=== PATIENT | male | born 1980 | race Caucasian/White ===

== ENCOUNTER 2023-06-16 21:17 | Inpatient (IN) | payer OTHER ==
[~2023-06-16] VITALS: Ht 167.6 cm; Wt 75.3 kg
[2023-06-16 21:25] VITALS: BP_SYST 120; PULSE 139; RESP 43; TEMP 97.4; O2SAT 100
[2023-06-16 21:51] LABS: BASOPHILS % (AUTO) 0.5 % (0.0-2.0); EOSINOPHILS % (AUTO) 0.7 % (0.0-4.0); HEMATOCRIT 27.5 % (36-54); HEMOGLOBIN 9.1 g/dL (14.0-18.0); LYMPHOCYTES # (AUTO) 1.2 K/uL (1.0-5.5); LYMPHOCYTES % (AUTO) 18.7 % (20.5-51.5); MEAN CORPUSCULAR HEMOGLOBIN 30 pg (27-31); MEAN CORPUSCULAR HGB CONC 33 % (32-36); MEAN CORPUSCULAR VOLUME 90 fL (79.0-98.0); MONOCYTES # (AUTO) 0.6 K/uL (0.0-1.0); MONOCYTES % (AUTO) 8.7 % (1.7-9.3); NEUTROPHILS # (AUTO) 4.7 K/uL (1.8-7.7); NEUTROPHILS % (AUTO) 71.4 % (40.0-70.0); PLATELET COUNT (AUTO) 315 K/uL (130-430); RED BLOOD CELL COUNT(AUTO) 3.05 MIL/uL (4.2-6.2); RED CELL DISTRIBUTION WIDTH 19.2 % (9.0-15.0); WHITE BLOOD COUNT (AUTO) 6.6 K/uL (4.8-10.8)
[2023-06-16 22:11] LABS: INR 1.5 (0.80-1.20); PROTHROMBIN TIME 14.8 SECS (9.5-12.5)
[2023-06-16] MEDS: FUROSEMIDE 40 MG/4 ML VIAL IVP ONE (22:28)
[2023-06-16 22:42] LABS: ALANINE AMINOTRANSFERASE 18 U/L (12-78); ALBUMIN 2.7 g/dL (3.4-4.8); ANION GAP 13 (5-15); ASPARTATE AMINOTRANSFERASE 24 U/L (10-37); CALCIUM 8.1 mg/dL (8.4-11.0); CARBON DIOXIDE 22 mmol/L (23-29); CHLORIDE 103 mmol/L (98-107); CREATININE 1.47 mg/dL (0.55-1.30); GFR AFRICAN AMERICAN 68 mL/min (>90); GLUCOSE 102 mg/dL (74-106); POTASSIUM 3.2 mmol/L (3.5-5.1); SODIUM SERUM 138 mmol/L (136-145); TOTAL BILIRUBIN 0.8 mg/dL (0.0-1.0); UREA NITROGEN, BLOOD 24 mg/dL (8-21)
[2023-06-16 22:50] LABS: GFR NON AFRICAN-AMERICAN 56 mL/min (>90)
[2023-06-16] MEDS ORDERED: APIX5TAB PO (23:11)
[2023-06-16] MEDS ORDERED: HYDR-500 PO (23:11)
[2023-06-16] MEDS ORDERED: BICT1TAB PO (23:11)
[2023-06-16] MEDS ORDERED: ONDA4TAB55 PO (23:11)
[2023-06-16] MEDS ORDERED: PHEDM120 PO (23:11)
[2023-06-16] MEDS ORDERED: FURO40TA5 PO (23:11)
[2023-06-16 23:12] LABS: BILIRUBIN,DIRECT 0.4 mg/dL (0.0-0.3)
[2023-06-16] MEDS ORDERED: ALLO100T PO (23:12)
[2023-06-17] VITALS (8 sets, daily range): BP systolic 104–137; PULSE 88–130; RESP 16–27; TEMP 96.9–98.5; O2SAT 94–100
[2023-06-17 00:13] LABS: COVID19 ANTIGEN SOFIA FIA NEGATIVE (NEGATIVE)
[2023-06-17 00:14] LABS: INFLUENZA TYPE A Negative (NEGATIVE); INFLUENZA TYPE B NEGATIVE (NEGATIVE)
[2023-06-17] MEDS: ZOLPIDEM TARTRATE 5 MG TABLET PO PRN (01:36)
[2023-06-17] MEDS: FUROSEMIDE 40 MG/4 ML VIAL IVP SCH (06:00)
[2023-06-17] MEDS: PIPERACILLIN/TAZOBACTAM 3.375 GM/VIAL (ZOSYN) IV ONE (06:08)
[2023-06-17] MEDS: PIPERACILLIN/TAZO 3.375 GM in NS 50 ML IV SCH (06:21)
[2023-06-17] MEDS: FLUCONAZOLE 100 MG TABLET (DIFLUCAN) PO SCH (10:00)
[2023-06-17] MEDS: ALBUTEROL SULFATE 0.083% 2.5 MG/3 ML VIAL.NEB INH SCH (11:30)
[2023-06-17] MEDS: POTASSIUM CHLORIDE 20 MEQ TABLET.ER PO ONE (13:08)
[2023-06-17] MEDS: AZITHROMYCIN 500 MG in NS 250 ML IV ONE (13:10)
[2023-06-17] MEDS: ALPRAZolam 0.25 MG TABLET PO PRN (16:05)
[2023-06-18] VITALS (8 sets, daily range): BP systolic 94–129; PULSE 89–120; RESP 16–23; TEMP 97.1–98.6; O2SAT 96–100
[2023-06-18] MEDS: ALLOPURINOL 100 MG TABLET (ZYLOPRIM) PO SCH (08:38)
[2023-06-18] MEDS: Biktarvy 50-200-25 mg Tablet PO SCH (08:38)
[2023-06-18 08:58] LABS: BILIRUBIN,URINE NEGATIVE (NEGATIVE); BLOOD, URINE NEGATIVE (NEGATIVE); CLARITY/URINE CLEAR (CLEAR); COLOR,URINE YELLOW (YELLOW); GLUCOSE,URINE NEGATIVE (NEGATIVE); KETONES,URINE NEGATIVE (NEGATIVE); LEUKOCYTE ESTERASE ,URINE NEGATIVE (NEGATIVE); NITRITE, URINE NEGATIVE (NEGATIVE); PROTEIN URINE NEGATIVE (NEGATIVE); UROBILINOGEN,URINE 0.2 (0.2-1.0)
[2023-06-18] MEDS: AZITHROMYCIN 250 MG in NS 250 ML IV SCH (09:23)
[2023-06-18 10:17] LABS: BASOPHILS # (AUTO) 0.1 K/uL (0.0-0.2); BASOPHILS % (AUTO) 1.1 % (0.0-2.0); EOSINOPHILS # (AUTO) 0.1 K/uL (0.0-0.4); EOSINOPHILS % (AUTO) 0.9 % (0.0-4.0); HEMATOCRIT 29.4 % (36-54); HEMOGLOBIN 9.6 g/dL (14.0-18.0); LYMPHOCYTES # (AUTO) 0.7 K/uL (1.0-5.5); MEAN CORPUSCULAR HEMOGLOBIN 30 pg (27-31); MEAN CORPUSCULAR HGB CONC 33 % (32-36); MEAN CORPUSCULAR VOLUME 91 fL (79.0-98.0); MONOCYTES # (AUTO) 0.6 K/uL (0.0-1.0); MONOCYTES % (AUTO) 9.8 % (1.7-9.3); NEUTROPHILS # (AUTO) 4.8 K/uL (1.8-7.7); NEUTROPHILS % (AUTO) 77.2 % (40.0-70.0); PLATELET COUNT (AUTO) 337 K/uL (130-430); RED BLOOD CELL COUNT(AUTO) 3.23 MIL/uL (4.2-6.2); RED CELL DISTRIBUTION WIDTH 19.8 % (9.0-15.0); WHITE BLOOD COUNT (AUTO) 6.2 K/uL (4.8-10.8)
[2023-06-18 10:21] LABS: CALCIUM 8.1 mg/dL (8.4-11.0); CREATININE 1.27 mg/dL (0.55-1.30); POTASSIUM 3.3 mmol/L (3.5-5.1)
[2023-06-18 10:26] LABS: ALBUMIN 2.6 g/dL (3.4-4.8); TOTAL BILIRUBIN 1.2 mg/dL (0.0-1.0); TOTAL PROTEIN, SERUM 7.6 g/dL (6.4-8.3)
[2023-06-18 11:14] LABS: ABG O2 SAT% ESTIMATE 98.5 % (94.0-100.0)
[2023-06-18 11:19] LABS: BLOOD GAS BASE EXCESS -7.4 mmol/L (-3.0-3.0); BLOOD GAS HCO3 11.8 mmol/L (21.0-27.0); BLOOD GAS PCO2 14.5 mmHg (32.0-45.0); BLOOD GAS PH 7.527 (7.350-7.450); BLOOD GAS PO2 106.7 mmHg (75.0-100.0)
[2023-06-18 11:20] LABS: ALLEN'S TEST POSITIVE (P)
[2023-06-18] MEDS: APIXABAN 2.5 MG TABLET PO ONE (11:37)
[2023-06-18] MEDS: CEFEPIME 2 GM in D5W 100 ML IV ONE (11:40)
[2023-06-18] MEDS: SACUBITRIL/VALSARTAN 24 MG-26 MG 1 TABLET PO ONE (14:39)
[2023-06-18 20:04] LABS: URINE SODIUM, RANDOM 54 mmol/L (40-220)
[2023-06-18] MEDS: SACUBITRIL/VALSARTAN 24 MG-26 MG 1 TABLET PO SCH (20:52)
[2023-06-18] MEDS: APIXABAN 2.5 MG TABLET PO SCH (20:52)
[2023-06-19] VITALS (11 sets, daily range): BP systolic 77–106; PULSE 67–107; RESP 16–20; TEMP 96.2–98.9; O2SAT 95–99
[2023-06-19 07:35] LABS: BASOPHILS % (AUTO) 0.4 % (0.0-2.0); EOSINOPHILS # (AUTO) 0.1 K/uL (0.0-0.4); EOSINOPHILS % (AUTO) 1.1 % (0.0-4.0); HEMOGLOBIN 9.5 g/dL (14.0-18.0); LYMPHOCYTES # (AUTO) 0.5 K/uL (1.0-5.5); LYMPHOCYTES % (AUTO) 7.6 % (20.5-51.5); MEAN CORPUSCULAR HEMOGLOBIN 29 pg (27-31); MEAN CORPUSCULAR HGB CONC 32 % (32-36); MEAN CORPUSCULAR VOLUME 92 fL (79.0-98.0); MONOCYTES # (AUTO) 0.5 K/uL (0.0-1.0); MONOCYTES % (AUTO) 7.1 % (1.7-9.3); NEUTROPHILS # (AUTO) 5.8 K/uL (1.8-7.7); NEUTROPHILS % (AUTO) 83.8 % (40.0-70.0); PLATELET COUNT (AUTO) 299 K/uL (130-430); RED BLOOD CELL COUNT(AUTO) 3.27 MIL/uL (4.2-6.2); RED CELL DISTRIBUTION WIDTH 19.7 % (9.0-15.0)
[2023-06-19 07:58] LABS: ALBUMIN 2.1 g/dL (3.4-4.8); CALCIUM 7.4 mg/dL (8.4-11.0); CREATININE 1.04 mg/dL (0.55-1.30); TOTAL BILIRUBIN 0.7 mg/dL (0.0-1.0); TOTAL PROTEIN, SERUM 6.2 g/dL (6.4-8.3)
[2023-06-19 08:00] LABS: POTASSIUM 2.7 mmol/L (3.5-5.1)
[2023-06-19] MEDS: CEFEPIME 2 GM in D5W 100 ML IV SCH (08:37)
[2023-06-19] MEDS: POTASSIUM CHLORIDE 20 MEQ TABLET.ER PO ONE ×2 (10:23→15:19)
[2023-06-19] MEDS: ALBUMIN HUMAN 25% 50 ML IV ONE (10:31)
[2023-06-19] MEDS: KCL 20 mEq in 100 mL (PREMIX) 200 ML IV ONE (11:26)
[2023-06-19 16:17] LABS: BASOPHILS % (AUTO) 0.5 % (0.0-2.0); EOSINOPHILS # (AUTO) 0.1 K/uL (0.0-0.4); HEMATOCRIT 28.1 % (36-54); LYMPHOCYTES # (AUTO) 0.5 K/uL (1.0-5.5); LYMPHOCYTES % (AUTO) 8.7 % (20.5-51.5); MEAN CORPUSCULAR HEMOGLOBIN 29 pg (27-31); MEAN CORPUSCULAR HGB CONC 32 % (32-36); MONOCYTES # (AUTO) 0.4 K/uL (0.0-1.0); MONOCYTES % (AUTO) 7.4 % (1.7-9.3); NEUTROPHILS # (AUTO) 4.9 K/uL (1.8-7.7); NEUTROPHILS % (AUTO) 81.4 % (40.0-70.0); PLATELET COUNT (AUTO) 271 K/uL (130-430); RED BLOOD CELL COUNT(AUTO) 3.11 MIL/uL (4.2-6.2); RED CELL DISTRIBUTION WIDTH 19.4 % (9.0-15.0)
[2023-06-19 16:18] LABS: MEAN CORPUSCULAR VOLUME 90 fL (79.0-98.0)
[2023-06-19 16:27] LABS: CALCIUM 7.4 mg/dL (8.4-11.0); CREATININE 1.07 mg/dL (0.55-1.30)
[2023-06-20] VITALS (12 sets, daily range): BP systolic 83–100; PULSE 56–123; RESP 18–22; TEMP 97–98.8; O2SAT 96–100
[2023-06-20] MEDS: PROMETHAZINE-DM 6.25 MG-15 MG/5 ML UDC PO PRN (01:37)
[2023-06-20 07:29] LABS: ALBUMIN 2.3 g/dL (3.4-4.8); CALCIUM 7.9 mg/dL (8.4-11.0); CREATININE 0.93 mg/dL (0.55-1.30); POTASSIUM 3.3 mmol/L (3.5-5.1); TOTAL BILIRUBIN 0.6 mg/dL (0.0-1.0); TOTAL PROTEIN, SERUM 6.7 g/dL (6.4-8.3)
[2023-06-20] MEDS: SPIRONOLACTONE 25 MG TABLET (ALDACTONE) PO ONE (12:25)
[2023-06-21] VITALS (9 sets, daily range): BP systolic 98–129; PULSE 81–116; RESP 20; TEMP 97.6–98.4; O2SAT 96–100
[2023-06-21] MEDS: SPIRONOLACTONE 25 MG TABLET (ALDACTONE) PO SCH (09:42)
[2023-06-21] MEDS: ATOVAQUONE 750 MG/5 ML UDC PO SCH (09:48)
[2023-06-21 10:07] LABS: ALBUMIN 2.6 g/dL (3.4-4.8); CALCIUM 8.6 mg/dL (8.4-11.0); CREATININE 0.94 mg/dL (0.55-1.30); POTASSIUM 3.7 mmol/L (3.5-5.1); TOTAL BILIRUBIN 0.7 mg/dL (0.0-1.0); TOTAL PROTEIN, SERUM 7.9 g/dL (6.4-8.3)
[2023-06-21] MEDS: COMMUNICATION ORDER XX ONE (11:45)
[2023-06-21] MEDS: POTASSIUM CHLORIDE 20 MEQ TABLET.ER PO ONE (13:00)
[2023-06-21] MEDS: FUROSEMIDE 20 MG TABLET PO ONE (13:06)
[2023-06-21] MEDS: LACTOBACILLUS RHAMNOSUS GG 1 CAP CAPSULE PO ONE (13:14)
[2023-06-21] MEDS: levoFLOXacin 500 MG TABLET PO ONE (13:14)
[2023-06-21] MEDS: methylPREDNISolone 4 MG TABLET PO ONE ×3 (14:28→20:42)
[2023-06-22] VITALS (8 sets, daily range): BP systolic 101–110; PULSE 96–114; RESP 17–20; TEMP 97.2–98; O2SAT 94–100
[2023-06-22 04:21] LABS: BASOPHILS % (AUTO) 0.8 % (0.0-2.0); EOSINOPHILS % (AUTO) 0.3 % (0.0-4.0); HEMOGLOBIN 9.6 g/dL (14.0-18.0); LYMPHOCYTES # (AUTO) 0.7 K/uL (1.0-5.5); LYMPHOCYTES % (AUTO) 12.7 % (20.5-51.5); MEAN CORPUSCULAR HEMOGLOBIN 29 pg (27-31); MEAN CORPUSCULAR HGB CONC 32 % (32-36); MEAN CORPUSCULAR VOLUME 92 fL (79.0-98.0); MONOCYTES # (AUTO) 0.4 K/uL (0.0-1.0); MONOCYTES % (AUTO) 7.8 % (1.7-9.3); NEUTROPHILS # (AUTO) 4.3 K/uL (1.8-7.7); NEUTROPHILS % (AUTO) 78.4 % (40.0-70.0); PLATELET COUNT (AUTO) 326 K/uL (130-430); RED BLOOD CELL COUNT(AUTO) 3.28 MIL/uL (4.2-6.2); WHITE BLOOD COUNT (AUTO) 5.5 K/uL (4.8-10.8)
[2023-06-22 04:28] LABS: ALBUMIN 2.8 g/dL (3.4-4.8); CALCIUM 8.5 mg/dL (8.4-11.0); CREATININE 1.08 mg/dL (0.55-1.30); POTASSIUM 5.4 mmol/L (3.5-5.1); TOTAL PROTEIN, SERUM 7.3 g/dL (6.4-8.3)
[2023-06-22] MEDS: FUROSEMIDE 20 MG TABLET PO SCH (09:37)
[2023-06-22] MEDS: LACTOBACILLUS RHAMNOSUS GG 1 CAP CAPSULE PO SCH (09:39)
[2023-06-22] MEDS: methylPREDNISolone 4 MG TABLET PO SCH (09:39)
[2023-06-22] MEDS ORDERED: SACU1TAB PO (09:41)
[2023-06-22] MEDS: levoFLOXacin 500 MG TABLET PO SCH (09:46)
[2023-06-22] MEDS ORDERED: methylPREDNISolone 4 MG TABLET PO SCH (12:00)
[2023-06-22] MEDS ORDERED: methylPREDNISolone 4 MG TABLET PO ONE ×2 (18:00→21:00)
[2023-06-23] MEDS ORDERED: methylPREDNISolone 4 MG TABLET PO SCH (21:00)
[2023-06-26 21:06] LABS: HIV-1 RNA BY PCR <20 copies/mL (.)
== END 2023-06-22 16:11 | disposition home or self-care (01) | DRG 892 ==
LOC: SED 21:17 → STU 23:14
PROVIDERS: ADMIT Specialist; ATTEND Specialist
DX: B20 Human immunodeficiency virus [HIV] disease (principal); N17.9 Acute kidney failure, unspecified; I50.23 Acute on chronic systolic (congestive) heart failure; J18.9 Pneumonia, unspecified organism; E83.51 Hypocalcemia; D63.1 Anemia in chronic kidney disease; Z20.822 Contact with and (suspected) exposure to COVID-19; F41.1 Generalized anxiety disorder; N18.9 Chronic kidney disease, unspecified; Z79.899 Other long term (current) drug therapy
CPT/HCPCS: 36415; 36600; 71045; 71046; 76770; 80048; 80053; 80076; 81001; 81003; 82570; 82803; 83605; 83615; 83880; 84302; 84484; 85025; 85610; 85730; 87040; 87070; 87186; 87205; 87497; 87536; 93005; 93306; 94640; 94664; 94760; 96365; 96375; 99291; G0378; J0456; J0692; J1940; J1956; J2543; J3480; J7050; J7060; J7509; P9046